=== PATIENT | male | born 1930 | race Caucasian/White ===

== ENCOUNTER 2020-08-08 06:23 | Observation (INO) | payer OTHER ==
[2020-08-08 06:36] VITALS: BMI 25.6
[2020-08-08] MEDS ORDERED: LISINOPRIL 5 MG TABLET PO ONE (08:32)
[2020-08-08] MEDS ORDERED: HYDROCHLOROTHIAZIDE 25 MG TABLET (FP) PO ONE (08:32)
[2020-08-08] MEDS ORDERED: LISINOPRIL 5 MG TABLET ONE (08:34)
[2020-08-08] MEDS ORDERED: HYDROCHLOROTHIAZIDE 25 MG TABLET (FP) ONE (08:34)
[2020-08-08 08:57] LABS: BASO % 0.3 % (0-2.0); EOS % 0.6 % (0-4.5); HEMATOCRIT 45.4 % (35.4-49); HEMOGLOBIN 14.8 GM/dL (11.7-16.9); LYMPH % 17.5 % (8-40); MCH 27.6 pg (25.7-33.7); MCHC 32.5 g/dl (32.0-35.9); MEAN CELL VOLUME 84.8 fl (80-96); MEAN PLT VOLUME 11.2 fl (7.5-11.1); MONO % 7.1 % (3.8-10.2); NEUT % 74.5 % (42.8-82.8); PLATELET COUNT 141 K/MM3 (134-434); RBC 5.36 M/mm3 (4.00-5.60); RDW 16.4 % (11.9-15.9); WHITE BLOOD COUNT 6.1 K/mm3 (4.0-10.0)
[2020-08-08 09:21] LABS: POTASSIUM 5.9 mmol/L (3.5-5.1)
[2020-08-08 09:24] LABS: ALBUMIN 3.3 g/dl (3.4-5.0); BLOOD UREA NITROGEN 21.1 mg/dL (7-18); CALCIUM 8.7 mg/dL (8.5-10.1)
[2020-08-08] MEDS ORDERED: PT OWN MED DRAWER 7, Y5N ONE (09:26)
[2020-08-08 09:28] LABS: CREATININE 1.7 mg/dL (0.55-1.3)
[2020-08-08 09:29] LABS: BILIRUBIN,TOTAL 1.2 mg/dL (0.2-1); TOT PROT 7.7 g/dl (6.4-8.2)
[2020-08-08 09:49] LABS: INR 1.37 (0.83-1.09); PROTHROMBIN TIME (PATIENT) 16.4 SEC (9.7-13.0)
[2020-08-08 09:52] LABS: ACTIVATED PTT 30.4 SECONDS (25.2-36.5)
[2020-08-08 11:54] LABS: POTASSIUM 3.8 mmol/L (3.5-5.1)
[2020-08-08 11:56] LABS: BLOOD UREA NITROGEN 19.8 mg/dL (7-18)
[2020-08-08 11:59] LABS: CREATININE 1.6 mg/dL (0.55-1.3)
[2020-08-08] MEDS ORDERED: ACETAMINOPHEN 1000 MG/100 ML VIAL (NON FORMULARY) IVPB ONE (13:35)
[2020-08-08] MEDS ORDERED: FAMOTIDINE 20 MG/50 ML IVPB 20 MG/50 ML MG IVPB ONE ×2 (13:35→15:03)
[2020-08-08 13:54] LABS: EPI CELLS 4 /uL (0-25.1); HYALINE CASTS 0 /uL (0-3.1); URINE APPEARANCE CLEAR; URINE BACTERIA 236 /uL (0-1359); URINE BILIRUBIN NEGATIVE (NEGATIVE); URINE COLOR YELLOW; URINE GLUCOSE (UA) NEGATIVE (NEGATIVE); URINE KETONE NEGATIVE (NEGATIVE); URINE LEUK ESTERASE NEGATIVE (NEGATIVE); URINE NITRITE NEGATIVE (NEGATIVE); URINE PROTEIN 1+ (NEGATIVE); URINE RBC 4 /uL (0-23.9); URINE UROBILINOGEN 0.2 mg/dL (0.2-1.0); URINE WBC 1 /uL (0-25.8)
[2020-08-08] MEDS ORDERED: ACETAMINOPHEN INJECTION 100 ML IVPB ONE (15:03)
[2020-08-08] MEDS ORDERED: PANTOPRAZOLE 40 MG TABLET PO SCH (16:45)
[2020-08-08] MEDS ORDERED: POTASSIUM CHLORIDE TABS 20 MEQ TABLET.ER (FP) PO SCH (16:45)
[2020-08-08] MEDS: LISINOPRIL 5 MG TABLET PO SCH (16:48)
[2020-08-08] MEDS ORDERED: ACETAMINOPHEN 325 MG TABLET (FP) PO PRN (16:59)
[2020-08-08] MEDS: PANTOPRAZOLE SODIUM 40 MG VIAL IVPUSH SCH (18:00)
[2020-08-08] MEDS ORDERED: POTASSIUM CHLORIDE TABS 20 MEQ TABLET.ER (FP) PO ONE (18:32)
[2020-08-09] MEDS: APIXABAN 2.5 MG TABLET PO SCH ×3 (01:30→21:47)
[2020-08-09] MEDS ORDERED: APIXABAN 2.5 MG TABLET ONE ×2 (01:31→09:33)
[2020-08-09 06:46] LABS: BASO % 0.3 % (0-2.0); EOS % 1.2 % (0-4.5); HEMATOCRIT 44.2 % (35.4-49); HEMOGLOBIN 14.6 GM/dL (11.7-16.9); LYMPH % 24.9 % (8-40); MCH 27.9 pg (25.7-33.7); MEAN CELL VOLUME 84.4 fl (80-96); MEAN PLT VOLUME 10.7 fl (7.5-11.1); MONO % 12.5 % (3.8-10.2); NEUT % 61.1 % (42.8-82.8); PLATELET COUNT 122 K/MM3 (134-434); RBC 5.23 M/mm3 (4.00-5.60); RDW 16.1 % (11.9-15.9); WHITE BLOOD COUNT 6.5 K/mm3 (4.0-10.0)
[2020-08-09 06:49] LABS: POTASSIUM 3.4 mmol/L (3.5-5.1)
[2020-08-09 06:54] LABS: CALCIUM 8.7 mg/dL (8.5-10.1)
[2020-08-09 06:55] LABS: ALBUMIN 3.2 g/dl (3.4-5.0); BLOOD UREA NITROGEN 19.8 mg/dL (7-18)
[2020-08-09 06:58] LABS: CREATININE 1.6 mg/dL (0.55-1.3)
[2020-08-09 06:59] LABS: BILIRUBIN,TOTAL 0.9 mg/dL (0.2-1); TOT PROT 7.2 g/dl (6.4-8.2)
[2020-08-09] MEDS ORDERED: HYDROCHLOROTHIAZIDE 25 MG TABLET (FP) ONE (09:32)
[2020-08-09] MEDS ORDERED: LISINOPRIL 5 MG TABLET ONE (09:33)
[2020-08-09] MEDS ORDERED: POTASSIUM CHLORIDE ORAL LIQUID 20 MEQ/15 ML ONE (09:35)
[2020-08-09] MEDS ORDERED: PANTOPRAZOLE SODIUM 40 MG VIAL ONE (09:35)
[2020-08-09] MEDS: HYDROCHLOROTHIAZIDE 25 MG TABLET (FP) PO SCH (10:23)
[2020-08-09] MEDS: LISINOPRIL 5 MG TABLET PO SCH (10:23)
[2020-08-09] MEDS: PANTOPRAZOLE SODIUM 40 MG VIAL IVPUSH SCH (10:23)
[2020-08-09] MEDS: POTASSIUM CHLORIDE TABS 10 MEQ TABLET.ER (FP) PO SCH (10:23)
[2020-08-10] MEDS: PANTOPRAZOLE SODIUM 40 MG VIAL IVPUSH SCH (10:31)
[2020-08-10] MEDS: LISINOPRIL 5 MG TABLET PO SCH (10:31)
[2020-08-10] MEDS: HYDROCHLOROTHIAZIDE 25 MG TABLET (FP) PO SCH (10:31)
[2020-08-10] MEDS: APIXABAN 2.5 MG TABLET PO SCH ×2 (10:31→21:07)
[2020-08-10] MEDS: POTASSIUM CHLORIDE TABS 10 MEQ TABLET.ER (FP) PO SCH (10:31)
[2020-08-11] MEDS: POTASSIUM CHLORIDE TABS 10 MEQ TABLET.ER (FP) PO SCH (09:22)
[2020-08-11] MEDS: APIXABAN 2.5 MG TABLET PO SCH (09:22)
[2020-08-11] MEDS: LISINOPRIL 5 MG TABLET PO SCH (09:22)
[2020-08-11] MEDS: HYDROCHLOROTHIAZIDE 25 MG TABLET (FP) PO SCH (09:22)
[2020-08-11] MEDS: PANTOPRAZOLE SODIUM 40 MG VIAL IVPUSH SCH (09:23)
[2020-08-11 10:36] LABS: BASO % 0.4 % (0-2.0); EOS % 1.9 % (0-4.5); HEMATOCRIT 46.7 % (35.4-49); HEMOGLOBIN 15.5 GM/dL (11.7-16.9); MCH 27.9 pg (25.7-33.7); MCHC 33.1 g/dl (32.0-35.9); MEAN CELL VOLUME 84.2 fl (80-96); MEAN PLT VOLUME 10.5 fl (7.5-11.1); MONO % 8.5 % (3.8-10.2); NEUT % 58.2 % (42.8-82.8); PLATELET COUNT 157 K/MM3 (134-434); RBC 5.55 M/mm3 (4.00-5.60); RDW 16.6 % (11.9-15.9); WHITE BLOOD COUNT 6.9 K/mm3 (4.0-10.0)
[2020-08-11 10:56] LABS: POTASSIUM 4.1 mmol/L (3.5-5.1)
[2020-08-11 11:03] LABS: CALCIUM 9.1 mg/dL (8.5-10.1)
[2020-08-11 11:04] LABS: BLOOD UREA NITROGEN 23.6 mg/dL (7-18)
[2020-08-11 11:07] LABS: CREATININE 1.7 mg/dL (0.55-1.3)
[2020-08-11 14:21] VITALS: BP 104/50; PULSE 92; TEMP 97.5
== END 2020-08-11 17:38 | disposition home or self-care (01) ==
LOC: JER 06:23 → JERBED 13:13 → J4W 08-09 14:42
PROVIDERS: ADMIT Internal Medicine; ATTEND Internal Medicine
PROC: 3E033NZ Introduction of Analgesics, Hypnotics, Sedatives into Peripheral Vein, Percutaneous Approach (ICD-10-PCS; principal; 2020-08-08)
PROC: 3E033GC Introduction of Other Therapeutic Substance into Peripheral Vein, Percutaneous Approach (ICD-10-PCS; 2020-08-08)
DX: D69.6 Thrombocytopenia, unspecified (principal); R00.1 Bradycardia, unspecified; E87.6 Hypokalemia; I27.20 Pulmonary hypertension, unspecified; I48.91 Unspecified atrial fibrillation; K76.1 Chronic passive congestion of liver; I51.7 Cardiomegaly; R10.33 Periumbilical pain; I51.89 Other ill-defined heart diseases; R10.13 Epigastric pain; Z79.01 Long term (current) use of anticoagulants; R79.89 Other specified abnormal findings of blood chemistry; R00.8 Other abnormalities of heart beat
CPT/HCPCS: 36415; 71275-TC; 74175-TC; 76705-TC; 80048; 80053; 81003; 82550; 82553; 83690; 84484; 85025; 85610; 85730; 87077; 87086; 93005; 93010; 93225; 93226; 93306-TC; 96365; 96375; 97116-GP; 97161-GP; 99285-25; C9803; G0378; J0131; Q9967; U0003; U0005

== ENCOUNTER 2021-08-21 14:05 | Emergency (ER) | payer OTHER ==
[2021-08-21 14:20] VITALS: BP 142/68; PULSE 69; TEMP 98; BMI 27.4
[2021-08-21] MEDS ORDERED: ACETAMINOPHEN 325 MG TABLET (FP) PO ONE (15:49)
[2021-08-21] MEDS ORDERED: LIDOCAINE 5% TOPICAL PATCH TP ONE (15:50)
[2021-08-21] MEDS ORDERED: ACETAMINOPHEN 325 MG TABLET (FP) ONE (17:18)
[2021-08-21] MEDS ORDERED: LIDOCAINE 5% TOPICAL PATCH ONE (17:18)
[2021-08-21 18:24] LABS: CALCIUM 9.1 mg/dL (8.5-10.1)
[2021-08-21 18:25] LABS: ALBUMIN 3.4 g/dl (3.4-5.0); BLOOD UREA NITROGEN 23.2 mg/dL (7-18)
[2021-08-21 18:28] LABS: CREATININE 1.9 mg/dL (0.55-1.3)
[2021-08-21 18:30] LABS: BILIRUBIN,TOTAL 0.8 mg/dL (0.2-1); TOT PROT 8.6 g/dl (6.4-8.2)
[2021-08-21 20:42] LABS: EPI CELLS 1 /uL (0-25.1); HYALINE CASTS 0 /uL (0-3.1); PH,URINE 5.5 (5.0-8.0); URINE APPEARANCE CLEAR; URINE BACTERIA 8 /uL (0-1359); URINE BILIRUBIN NEGATIVE (NEGATIVE); URINE COLOR YELLOW; URINE GLUCOSE (UA) NEGATIVE (NEGATIVE); URINE KETONE NEGATIVE (NEGATIVE); URINE LEUK ESTERASE NEGATIVE (NEGATIVE); URINE NITRITE NEGATIVE (NEGATIVE); URINE PROTEIN 1+ (NEGATIVE); URINE RBC 2 /uL (0-23.9); URINE WBC 3 /uL (0-25.8)
[2021-08-21] MEDS ORDERED: LIDOCAINE PATCH REMOVAL MC SCH (22:00)
== END 2021-08-22 01:11 | disposition left against medical advice (07) ==
LOC: JER 14:05
DX: R10.9 Unspecified abdominal pain (principal)
CPT/HCPCS: 36415; 74176-TC; 80053; 81003; 99284-25